=== PATIENT | male | born 1995 | race Caucasian/White ===

== ENCOUNTER 2019-02-24 19:35 | Emergency (ER) | payer BC ==
[2019-02-24] MEDS ORDERED: Ketorolac Tromethamine 60 MG/2 ML VIAL ONE (20:13)
[2019-02-24] MEDS ORDERED: Ketorolac Tromethamine 30 MG/ML VIAL ONE (20:16)
--- NOTE | 2019-02-24 20:35 | RAD ---
FXR Knee Lt 4 View STANDARD: 02/24/2019 8:10 PM CLINICAL INDICATION: Injury, pain COMPARISON: None. FINDINGS: Fracture:No fracture. Arthropathy:None of significance. Incidental findings:Scattered heterotopic densities are present about the left knee joint IMPRESSION: 1. No acute osseous abnormality.
== END 2019-02-24 21:40 | disposition home health service (06) ==
LOC: ERS 19:35 → EDBD 19:35 → ERS 21:40
DX: S83.92XA Sprain of unspecified site of left knee, initial encounter (principal); J45.909 Unspecified asthma, uncomplicated; F41.9 Anxiety disorder, unspecified; F32.9 Major depressive disorder, single episode, unspecified; F17.290 Nicotine dependence, other tobacco product, uncomplicated; W51.XXXA Accidental striking against or bumped into by another person, initial encounter
CPT/HCPCS: 96374; J1885